=== PATIENT | female | born 1945 | race Caucasian/White ===

== ENCOUNTER 2016-12-21 10:51 | Day surgery (SDC) | payer MEDICARE, OTHER ==
[2016-12-13 10:35] LABS: ABSOLUTE EOSINOPHILS # (AUTO) 0.2 10^3/uL (0.0-0.6); ABSOLUTE LYMPHOCYTES (AUTO) 2.6 10^3/uL (0.5-4.7); ABSOLUTE MONOCYTES (AUTO) 0.6 10^3/uL (0.1-1.4); ABSOLUTE NEUT (AUTO) 3.2 10^3/uL (1.7-8.2); BASOPHILS % (AUTO) 0.6 % (0-2); EOSINOPHILS % (AUTO) 3.4 % (0-6); HEMATOCRIT 37.5 % (36.0-47.0); HEMOGLOBIN 12.3 g/dL (12.0-15.5); HGB HCT DIFFERENCE -0.6; LYMPHOCYTES % (AUTO) 39.4 % (13-45); MEAN CORPUSCULAR HEMOGLOBIN 32.3 pg (27.0-33.4); MEAN CORPUSCULAR HGB CONC 32.9 g/dL (32.0-36.0); MEAN CORPUSCULAR VOLUME 98 fl (80-97); MONOCYTES % (AUTO) 9.3 % (3-13); RED BLOOD COUNT 3.82 10^6/uL (3.72-5.28); RED CELL DISTRIBUTION WIDTH 13.9 % (11.5-14.0); SEGMENTED NEUTROPHILS % (AUTO) 47.3 % (42-78); WHITE BLOOD COUNT 6.7 10^3/uL (4.0-10.5)
[2016-12-13 10:36] LABS: APPEARANCE,URINE SLIGHTLY-CLOUDY; BILIRUBIN,URINE NEGATIVE (NEGATIVE); GLUCOSE, URINE NEGATIVE (NEGATIVE); KETONES,URINE NEGATIVE (NEGATIVE); LEUKOCYTE ESTERASE,URINE SMALL (NEGATIVE); NITRITE,URINE NEGATIVE (NEGATIVE); PROTEIN,URINE NEGATIVE (NEGATIVE); URINE SPECIFIC GRAVITY 1.013; UROBILINOGEN,URINE NEGATIVE mg/dL (<2.0)
[2016-12-13 11:06] LABS: ANION GAP 8 (5-19); BLOOD UREA NITROGEN 10 mg/dL (7-20); CALCIUM 9.3 mg/dL (8.4-10.2); CARBON DIOXIDE 31 mmol/L (22-30); CHLORIDE 104 mmol/L (98-107); CREATININE RESULT 0.71 mg/dL (0.52-1.25); GLUCOSE 76 mg/dL (75-110); POTASSIUM 5.3 mmol/L (3.6-5.0); SODIUM 142.8 mmol/L (137-145)
--- NOTE | 2016-12-13 11:20 | EKG REPORT ---
SEVERITY:- NORMAL ECG - SINUS RHYTHM : Confirmed by: Malachi River 13-Dec-2016 11:19:08
--- NOTE | 2016-12-13 11:55 | RADIOLOGY REPORT (SQ) ---
EXAM DESCRIPTION: CHEST PA/LATERAL COMPLETED DATE/TIME: 12/13/2016 11:18 am REASON FOR STUDY: PRE OP COMPARISON: None. TECHNIQUE: Frontal and lateral radiographic views of the chest acquired. NUMBER OF VIEWS: Two view. LIMITATIONS: None. FINDINGS: LUNGS AND PLEURA: No opacities, masses or pneumothorax. No pleural effusion. MEDIASTINUM AND HILAR STRUCTURES: No masses or contour abnormalities. HEART AND VASCULAR STRUCTURES: Heart normal size. No evidence for failure. BONES: No acute findings. HARDWARE: None in the chest. OTHER: No other significant finding. IMPRESSION: NO SIGNIFICANT RADIOGRAPHIC FINDING IN THE CHEST. TECHNICAL DOCUMENTATION: JOB ID: [id number] [employer]- All Rights Reserved
[~2016-12-21 10:51] MED LIST: CEFAZOLIN 2 GM/D5W RTU 2 GM/50 ML RTUPB IV PRN; CEFEPIME 2 GM/D5W RTU 2 GM/50 ML RTUPB IV PRN; DEXAMETHASONE SOD PHOSPHATE INJ 4 MG/1 ML VIAL ONE; LACTATED RINGERS 1000 ML IV PRN; LIDOCAINE 0.5% INJ-PF (5 MG/ML) 50 ML SDV SUBCUT PRN; LIDOCAINE 2% INJ-PF (20 MG/ML) 10 ML AMPUL ONE; ONDANSETRON HCL INJ/PF 4 MG/2 ML SDV ONE
[2016-12-21] MEDS ORDERED: LIDOCAINE 1%/EPINEPHRINE INJ 20 ML VIAL ONE (11:18)
[2016-12-21] MEDS ORDERED: BUPIVACAINE HCL 0.25% /EPINEPHRINE INJ/PF 30 ML SDV ONE (11:18)
[2016-12-21] MEDS ORDERED: BUPIVACAINE HCL 0.25 % INJ/PF (2.5 MG/1 ML) 30 ML VIAL ONE (11:21)
[2016-12-21] MEDS ORDERED: FENTANYL CITRATE INJ/PF 100 MCG/2 ML AMPUL ONE (11:44)
[2016-12-21] MEDS ORDERED: PROPOFOL INJ 200 MG/20 ML VIAL IV ONE (11:44)
[2016-12-21] MEDS ORDERED: MIDAZOLAM 2 MG/2 ML INJ ONE (11:44)
[2016-12-21] MEDS ORDERED: LIDOCAINE 1% INJ-PF (10 MG/ML) 30 ML SDV ONE (12:35)
[2016-12-21] MEDS ORDERED: OXYCODONE-ACETAMINOPHEN 5-325 MG TABLET PO PRN ×3 (14:21→15:08)
[2016-12-21] MEDS ORDERED: DIPHENHYDRAMINE HCL 50 MG/ML VIAL IV PRN (14:21)
[2016-12-21] MEDS ORDERED: MEPERIDINE HCL/PF INJ 25 MG/1 ML DISP.SYRIN IV PRN (14:21)
[2016-12-21] MEDS ORDERED: FENTANYL CITRATE INJ/PF 100 MCG/2 ML AMPUL IV PRN ×3 (14:21)
[2016-12-21] MEDS ORDERED: PROMETHAZINE HCL INJ 25 MG/1 ML VIAL IV PRN ×2 (14:21)
[2016-12-21] MEDS ORDERED: MORPHINE SULFATE 10 MG/ML INJ IV PRN (14:21)
--- NOTE | 2016-12-21 15:04 | Operative Report ---
Operative Report DATE OF SURGERY: 12/21/16 PREOPERATIVE DIAGNOSIS: Right carpal tunnel syndrome POSTOPERATIVE DIAGNOSIS: Same OPERATION: Right carpal tunnel release SURGEON: MATTHEW EMERSON ANESTHESIA: LMAC TISSUE REMOVED OR ALTERED: None COMPLICATIONS: None ESTIMATED BLOOD LOSS: 10 mL PROCEDURE: Procedure In Detail: Patient was seen and evaluated in the preoperative holding area. The RIGHT upper extremity was initialized and marked. Patient received Ancef IV for bacterial prophylaxis. Patient was taken back to the operative room where transferred operative table. Patient was sedated. Once he was adequately anesthetized, a nonsterile tourniquet was placed on his upper extremity. A surgical team debriefing was performed ensuring all instrumentation was available, the surgical procedure was discussed with possible concerns reviewed. The upper extremity was prepped with chlorhexidine and alcohol and draped in a sterile fashion. A timeout was done identifying correct patient, procedure and extremity everyone in attendance agree with this and verbalized no concerns.The extremity was then exsanguinated the tourniquet was inflated to 250 mmHg. I used first 10 mL's of 1% lidocaine to inject in the anticipated surgical site. A longitudinal incision over the mid palm was done. Immediately a self- retaining retractor was applied. I used Metzenbaum scissors to then dissect the palmar fascial tissue exposing the carpal tunnel ligament. I placed a hemostat at the most distal end and looped under the carpal tunnel ligament protecting the median nerve. I used a 15 blade and then to release partial relief for partially. I redirected hemostat to go further proximal and then remit maintaining ligament was cut with the 15 blade. I was able to place my small finger and feel no restricting bands or will remanent of the ligament. I did use a Metzenbaum scissors to release some of the forearm tissue make sure that there is no compression of the nerve. I then used pickups and layers to expose the median nerve and the motor branch showing no damage or injury to it. I used both irrigation to clean the wound and irrigated. Tourniquet was let down after 6 minutes. I used my bipolar electrocautery to then controlled any superficial bleeding. I then used 3-[address] 3 stitches in a horizontal mattress fashion. I proceeded then to apply 10 mL of quarter percent bupivacaine. extremity was cleaned and dried off. Xeroform followed by 2 x 2 dressings and Tegaderm was applied. I will wrapped with Santana bandage and then at this point remove the drapes. patient was then sent to PACU in stable condition.
--- NOTE | 2016-12-21 15:08 | PDOC DISCHARGE SUMMARY ---
Discharge Summary (SDC) - Discharge Final Diagnosis: Right carpal tunnel syndrome status post carpal tunnel release Date of Surgery: 12/21/16 Discharge Date: 12/21/16 Condition: Good Treatment or Instructions: Keep dressing on for 3 days. Remove dressing and then okay to shower. No soaking or bathing. Avoid lifting heavy objects. Follow-up in 1-2 weeks in the office. Instructed to return if any fevers chills redness or drainage from the wound. Prescriptions: Oxycodone HCl/Acetaminophen [Percocet 5-325 mg Tablet] 1 tab PO ASDIR PRN #15 tab PRN Reason: Respiratory Treatments at Home: Deep Breathing/Coughing Discharge Activity: No Lifting/Push/Pulling Home Care Assistance: None Needed Report the Following to Your Physician Immediately: Shortness of Breath, Vomiting, Increase in Pain, Fever over 101 Degrees, Unusual Bleeding, Redness, Swelling, Warmth, Increased Soreness, Drainage-Yellow, Drainage-Onofre, Drainage- Green, Drainage-Foul Smelling
[2016-12-21 16:35] VITALS: BP 122/78
== END 2016-12-21 16:30 | disposition home or self-care (01) ==
LOC: OROUT 10:51
PROVIDERS: ATTEND Orthopaedic Surgery
PROC: 01N50ZZ Release Median Nerve, Open Approach (ICD-10-PCS; principal; 2016-12-21 12:45)
DX: G56.01 Carpal tunnel syndrome, right upper limb (principal); E78.00 Pure hypercholesterolemia, unspecified; E07.9 Disorder of thyroid, unspecified; I10 Essential (primary) hypertension; M79.7 Fibromyalgia; E56.9 Vitamin deficiency, unspecified; F32.9 Major depressive disorder, single episode, unspecified; G43.909 Migraine, unspecified, not intractable, without status migrainosus; Z96.659 Presence of unspecified artificial knee joint; Z88.0 Allergy status to penicillin; Z88.6 Allergy status to analgesic agent; Z79.899 Other long term (current) drug therapy; Z87.891 Personal history of nicotine dependence
CPT/HCPCS: 93005; 36415 ×2; 84132; 85025; 80048; 81001; 71020; 93010; 64721; J2250; J1100; J3010; J3490 ×2; J2405; J2704; J0690; 1810

== ENCOUNTER 2017-01-18 17:11 | Emergency (ER) | payer MEDICARE, OTHER ==
[2017-01-18] MEDS ORDERED: NITROGLYCERIN 2% OINTMENT 1 GM PACKET TP ONE (17:23)
--- NOTE | 2017-01-18 17:25 | ER Document Report ---
ED Cardiac <ENRIQUE AMIN - Last Filed: 01/18/17 23:05> - General Mode of Arrival: Ambulatory Information source: Patient TRAVEL OUTSIDE OF THE [place] IN LAST 30 DAYS: No <DANIEL RICE - Last Filed: 01/20/17 11:48> - General Chief Complaint: Chest Pain Stated Complaint: CHEST PAIN Time Seen by Provider: 01/18/17 17:16 Notes: Patient is a 71-year-old female with a history of hypertension, hyperlipidemia who presents to the ER today for chest pain that started 3 days ago off and on but worsened acutely right before arrival today at approximately 4 PM. Patient was sitting on her porch talking to her daughter on the telephone whenever she had left-sided chest pain that was very sharp in nature, going straight through to her back radiating into the left arm and up to the left jaw. Patient denies any nausea or shortness of breath with this. She has never had a heart attack or stroke. She took 3 baby aspirin immediately. She denies any calf pain or history of blood clots. (DANIEL RICE) - Related Data Allergies/Adverse Reactions: Penicillins Allergy (Intermediate, Verified 01/18/17 17:28) Generalized Itching tetracycline Allergy (Intermediate, Verified 01/18/17 17:28) Generalized rash erythromycin base Allergy (Mild, Verified 01/18/17 17:28) Generalized rash amoxicillin Allergy (Verified 01/18/17 17:28) Generalized rash Past Medical History - General Information source: Patient - Social History Smoking Status: Unknown if Ever Smoked Family History: Reviewed & Not Pertinent - Past Medical History Cardiac Medical History: Denies: Hx Coronary Artery Disease, Hx Heart Attack, Hx Hypertension Pulmonary Medical History: Reports: Hx Pneumonia - HISTORY OF 2 TIMES Denies: Hx Asthma, Hx Bronchitis, Hx COPD Neurological Medical History: Denies: Hx Cerebrovascular Accident, Hx Seizures Musculoskeltal Medical History: Reports Hx Arthritis - OSTEO ARTHRITIS - Immunizations Hx Diphtheria, Pertussis, Tetanus Vaccination: Yes Hx Pneumococcal Vaccination: 08/03/14 <DANIEL RICE - Last Filed: 01/20/17 11:48> Review of Systems - Review of Systems Constitutional: No symptoms reported EENT: No symptoms reported Cardiovascular: See HPI Respiratory: No symptoms reported Gastrointestinal: No symptoms reported Genitourinary: No symptoms reported Female Genitourinary: No symptoms reported Musculoskeletal: No symptoms reported Skin: No symptoms reported Hematologic/Lymphatic: No symptoms reported Neurological/Psychological: No symptoms reported <DEUCEFERNDANIEL GRAVES - Last Filed: 01/20/17 11:48> Physical Exam <ENRIQUE AMIN - Last Filed: 01/18/17 23:05> <DEUCEFERNDANIEL GRAVES - Last Filed: 01/20/17 11:48> - Vital signs Vitals: Resp BP Pulse Ox 13 113/66 98 01/18/17 17:17 01/18/17 17:17 01/18/17 17:17 - Notes Notes: PHYSICAL EXAMINATION: GENERAL: obviously uncomfortable, but in no acute distress. HEAD: Atraumatic, normocephalic. EYES: Pupils equal round and reactive to light, extraocular movements intact, sclera anicteric, conjunctiva are normal. NECK: Normal range of motion, supple without lymphadenopathy LUNGS: CTAB and equal. No wheezes rales or rhonchi. HEART: chest nontender to palpation, Regular rate and rhythm without murmurs ABDOMEN: Soft, no tenderness. No guarding, no rebound BACK: no vertebral tenderness, normal ROM GI/: no CVA tenderness EXTREMITIES: Normal range of motion, no pitting edema. No cyanosis. NEUROLOGICAL: Cranial nerves grossly intact. Normal sensory/motor exams. PSYCH: Normal mood, normal affect. SKIN: Warm, Dry, normal turgor, no rashes or lesions noted (DANIEL RICE) Course - Laboratory Result Diagrams: 01/18/17 17:20 01/18/17 17:20 <ENRIQUE AMIN - Last Filed: 01/18/17 23:05> - Laboratory Result Diagrams: 01/18/17 17:20 01/18/17 17:20 <KRYSTALDANIEL - Last Filed: 01/20/17 11:48> - Re-evaluation Re-evalutation: 01/18/17 18:42 3 nitroglycerin on the ambulance relieved patient's pain from a 10 down to a 6. Nitropaste is now relieved her from a 6 down to a 2 out of 10 pain, however I cannot get patient pain-free. Patient has also had Tylenol, she is complaining of headache after the nitroglycerin was given. First troponin is normal. Lab work is unremarkable at this point. EKG reveals a normal sinus rhythm with a rate of 84 bpm without evidence of ischemia or abnormality. Hospitalist here do not admit patient with continued chest pain coming in with her type of story as she likely needs a cardiac catheterization. Tutu Lui was called, I am awaiting callback. 01/18/17 19:27 pt is now chest pain free with nitro paste. Dr. Barragan, hospitalist here wants second troponin as she is having typical chest pain. Handed over to AMALIA Vasquez at this time. 01/18/17 19:37 (DANIEL RICE) - Vital Signs Vital signs: Temp Pulse Resp BP Pulse Ox 98.0 F 20 105/60 98 01/18/17 17:22 01/18/17 23:01 01/18/17 23:01 01/18/17 23:01 - Laboratory Laboratory results interpreted by me: 01/18/17 01/18/17 17:20 17:20 MCV 102 H MCH 34.2 H Creatine Kinase < 20 L Discharge <ENRIQUE AMIN - Last Filed: 01/18/17 23:05> <DANIEL RICE - Last Filed: 01/20/17 11:48> - Discharge Clinical Impression: Unstable angina Condition: Poor Disposition: AGAINST MEDICAL ADVICE Instructions: Angina Episode ([facility]), Nitrates ([facility]) Additional Instructions: As you are leaving AGAINST MEDICAL ADVICE, please remember what we discussed that this still could be a life-threatening situation and could very likely be related to a severe blockage to your heart. Please return immediately if you change your mind about further evaluation and treatment, develop more chest pain. May use the nitroglycerin in the meantime as directed. Take a daily aspirin unless there is some cause that you cannot. Prescriptions: Nitroglycerin [Nitrostat 0.4 mg (1/150 Gr) Tabs 25/Bottle] 1 tab SL Q5MP PRN # 25 tab.subl PRN Reason:
[2017-01-18 17:28] LABS: ABSOLUTE BASOPHILS # (AUTO) 0.1 10^3/uL (0.0-0.2); ABSOLUTE EOSINOPHILS # (AUTO) 0.2 10^3/uL (0.0-0.6); ABSOLUTE LYMPHOCYTES (AUTO) 2.5 10^3/uL (0.5-4.7); ABSOLUTE MONOCYTES (AUTO) 0.5 10^3/uL (0.1-1.4); ABSOLUTE NEUT (AUTO) 3.3 10^3/uL (1.7-8.2); BASOPHILS % (AUTO) 1.1 % (0-2); EOSINOPHILS % (AUTO) 2.7 % (0-6); HEMATOCRIT 38.7 % (36.0-47.0); HGB HCT DIFFERENCE 0.3; LYMPHOCYTES % (AUTO) 38.3 % (13-45); MEAN CORPUSCULAR HEMOGLOBIN 34.2 pg (27.0-33.4); MEAN CORPUSCULAR HGB CONC 33.7 g/dL (32.0-36.0); MEAN CORPUSCULAR VOLUME 102 fl (80-97); RED BLOOD COUNT 3.81 10^6/uL (3.72-5.28); RED CELL DISTRIBUTION WIDTH 13.7 % (11.5-14.0); SEGMENTED NEUTROPHILS % (AUTO) 50.9 % (42-78); WHITE BLOOD COUNT 6.6 10^3/uL (4.0-10.5)
--- NOTE | 2017-01-18 17:48 | RADIOLOGY REPORT (SQ) ---
EXAM DESCRIPTION: CHEST SINGLE VIEW COMPLETED DATE/TIME: 01/18/2017 5:29 pm REASON FOR STUDY: bed 11 cp COMPARISON: 12/13/2016 NUMBER OF VIEWS: One view. TECHNIQUE: Single frontal radiographic view of the chest acquired. LIMITATIONS: None. FINDINGS: LUNGS AND PLEURA: No opacities, masses or pneumothorax. No pleural effusion. MEDIASTINUM AND HILAR STRUCTURES: No masses. Contour normal. HEART AND VASCULAR STRUCTURES: Heart normal in size. Normal vasculature. BONES: No acute findings. HARDWARE: None in the chest. OTHER: No other significant finding. IMPRESSION: NO SIGNIFICANT RADIOGRAPHIC FINDING IN THE CHEST. TECHNICAL DOCUMENTATION: JOB ID: [id number] [employer]- All Rights Reserved
[2017-01-18 17:53] LABS: ALANINE AMINOTRANSFERASE 29 U/L (9-52); ALKALINE PHOSPHATASE 71 U/L (38-126); ANION GAP 8 (5-19); ASPARTATE AMINO TRANSFERASE 19 U/L (14-36); BILIRUBIN,DIRECT 0.3 mg/dL (0.0-0.4); BILIRUBIN,TOTAL 0.5 mg/dL (0.2-1.3); BLOOD UREA NITROGEN 14 mg/dL (7-20); CALCIUM 9.5 mg/dL (8.4-10.2); CARBON DIOXIDE 26 mmol/L (22-30); CHLORIDE 107 mmol/L (98-107); CREATININE RESULT 0.69 mg/dL (0.52-1.25); GLUCOSE 108 mg/dL (75-110); POTASSIUM 4.2 mmol/L (3.6-5.0); SODIUM 141.4 mmol/L (137-145); TOTAL PROTEIN 6.7 g/dL (6.3-8.2)
[2017-01-18 17:54] LABS: CREATINE KINASE < 20 U/L (30-135)
[2017-01-18 18:05] LABS: CREATINE KINASE MB 0.25 ng/mL (<4.55); TROPONIN I < 0.012 ng/mL
[2017-01-18] MEDS ORDERED: ACETAMINOPHEN 325 MG TABLET PO ONE (18:16)
--- NOTE | 2017-01-18 22:33 | ER Document Report ---
Doctor's Note Notes: 01/18/17 22:30 As the providers were not available I went and saw the patient as she was trying to leave AMA and I wanted to make sure she understood. I had a long discussion with her and her daughter there was concern for the patient having unstable angina. Patient initially was agreeable per report to be admitted. They are waiting on his second cardiac enzymes to make sure she had not had a non-STEMI. The patient's pain was resolved with nitroglycerin. She does admit to me she used her 's nitroglycerin at home who is . She is pain -free at this point and demanding to leave. She is well aware of cardiac risk considering her father of cardiac disease. She understands the implications of 2 negative troponins does not exclude life-threatening coronary artery disease. She does guarantee me she will come back if the pain recurs. I instructed her on nitroglycerin and will prescribe her a file and she has been instructed on its use again. It seems to me that she does not have her seeing-eye dog of 8 years, a black lab and she wants to get back to the dog. She will follow-up with cardiology. She does have [place] PCP in [place] that she will touch base with as well. Again she is leaving AMA completely understanding the risks including and permanent disability.
[2017-01-18 23:18] VITALS: BP 105/60
--- NOTE | 2017-01-19 06:03 | EKG REPORT ---
SEVERITY:- NORMAL ECG - SINUS RHYTHM : Confirmed by: Mahsa Foster MD 19-Jan-2017 06:02:15
== END 2017-01-18 23:19 | disposition left against medical advice (07) ==
LOC: ER 17:11
DX: I20.0 Unstable angina (principal); I10 Essential (primary) hypertension; Z88.0 Allergy status to penicillin; Z88.1 Allergy status to other antibiotic agents; R51 Headache; Z53.20 Procedure and treatment not carried out because of patient's decision for unspecified reasons
CPT/HCPCS: 93005; 99285; 36415; 82553; 82550; 85025; 80053; 84484; 71010; 93010; A9270 ×2

== ENCOUNTER 2019-08-27 17:25 | Observation (INO) | payer MEDICARE, OTHER ==
--- NOTE | 2019-08-27 18:53 | RADIOLOGY REPORT (SQ) ---
EXAM DESCRIPTION: CHEST SINGLE VIEW COMPLETED DATE/TIME: 08/27/2019 6:45 pm REASON FOR STUDY: bed 11 cp COMPARISON: None. EXAM PARAMETERS: NUMBER OF VIEWS: One view. TECHNIQUE: Single frontal radiographic view of the chest acquired. RADIATION DOSE: NA LIMITATIONS: None. FINDINGS: LUNGS AND PLEURA: No opacities, masses or pneumothorax. No pleural effusion. MEDIASTINUM AND HILAR STRUCTURES: No masses. Contour normal. HEART AND VASCULAR STRUCTURES: Heart normal in size. Aortic atherosclerosis. . BONES: No acute findings. HARDWARE: Surgical clips overlie left upper quadrant. OTHER: No other significant finding. IMPRESSION: NO ACUTE RADIOGRAPHIC FINDING IN THE CHEST. TECHNICAL DOCUMENTATION: JOB ID: [id number] 2010 [employer] All Rights Reserved Reading location - IP/workstation name: [email or web address]
[2019-08-27 19:34] LABS: ABSOLUTE EOSINOPHILS # (AUTO) 0.2 10^3/uL (0.0-0.6); ABSOLUTE LYMPHOCYTES (AUTO) 2.2 10^3/uL (0.5-4.7); ABSOLUTE MONOCYTES (AUTO) 0.4 10^3/uL (0.1-1.4); ABSOLUTE NEUT (AUTO) 3.9 10^3/uL (1.7-8.2); BASOPHILS % (AUTO) 0.6 % (0-2); EOSINOPHILS % (AUTO) 2.3 % (0-6); HEMATOCRIT 37.7 % (36.0-47.0); HEMOGLOBIN 12.8 g/dL (12.0-15.5); LYMPHOCYTES % (AUTO) 33.2 % (13-45); MEAN CORPUSCULAR HEMOGLOBIN 33.1 pg (27.0-33.4); MEAN CORPUSCULAR HGB CONC 33.9 g/dL (32.0-36.0); MEAN CORPUSCULAR VOLUME 98 fl (80-97); MONOCYTES % (AUTO) 5.9 % (3-13); PLATELET COUNT 225 10^3/uL (150-450); RED BLOOD COUNT 3.86 10^6/uL (3.72-5.28); RED CELL DISTRIBUTION WIDTH 13.3 % (11.5-14.0); TOTAL CELLS COUNTED % (AUTO) 100 %; WHITE BLOOD COUNT 6.8 10^3/uL (4.0-10.5)
[2019-08-27 20:00] LABS: ALBUMIN 3.6 g/dL (3.5-5.0); ALKALINE PHOSPHATASE 76 U/L (38-126); ANION GAP 6 (5-19); ASPARTATE AMINO TRANSFERASE 22 U/L (14-36); BILIRUBIN,DIRECT 0.3 mg/dL (0.0-0.4); BILIRUBIN,TOTAL 0.3 mg/dL (0.2-1.3); BLOOD UREA NITROGEN 12 mg/dL (7-20); CALCIUM 8.9 mg/dL (8.4-10.2); CARBON DIOXIDE 30 mmol/L (22-30); CHLORIDE 107 mmol/L (98-107); GLUCOSE 93 mg/dL (75-110); POTASSIUM 4.7 mmol/L (3.6-5.0); TOTAL PROTEIN 6.2 g/dL (6.3-8.2)
[2019-08-27 20:04] LABS: CREATINE KINASE < 20 U/L (30-135)
[2019-08-27 20:12] LABS: CREATINE KINASE MB 0.45 ng/mL (<4.55); TROPONIN I < 0.012 ng/mL
--- NOTE | 2019-08-27 21:28 | ER Document Report ---
ED General - General Chief Complaint: Chest Pain Stated Complaint: CHEST PAIN Time Seen by Provider: 08/27/19 20:17 TRAVEL OUTSIDE OF THE [place] IN LAST 30 DAYS: No - HPI Notes: 73-year-old female with history of heavy cigarette smoking, hypertension and hyperlipidemia but no known prior history of CAD now presenting with a chief complaint of central chest pain. Patient says she was walking outdoors when the pain came on relatively suddenly and was described as an oppressive pressure sensation in the center of her chest radiating to left shoulder. This was about a 7/10 intensity at that time. Over the course of 30 minutes or so without any specific intervention it decreased to a level of about 3/10. Patient persisted until the time she got to the emergency department when she arrived here the pain resolved and has not returned. No associated nausea, vomiting, diaphoresis or dyspnea. Patient's daughter gave her aspirin at home. Patient was seen here in the emergency department in 2017 for chest pain and signed out AMA at that time and never underwent further work-up. She continues to smoke a pack of cigarettes per day. Patient is not diabetic. Family history is negative for CAD. She has no personal nor family history of thromboembolic disease. HEART Score: HISTORY 2 ECG 1 AGE 3 RISK FACTORS 2 TROPONIN 0 TOTAL: 7 If HEART score is = 3 AND both tronponin measurments are normal, the 30 day risk of a major adverse cardiac event (all-cause mortality, myocardia infarction or need for coronary revscularization) is < 1% (Sensitivity 100%, NPV 100%). - Related Data Allergies/Adverse Reactions: Penicillins Allergy (Intermediate, Verified 08/27/19 19:07) Generalized Itching tetracycline Allergy (Intermediate, Verified 08/27/19 19:07) Generalized rash erythromycin base Allergy (Mild, Verified 08/27/19 19:07) Generalized rash amoxicillin Allergy (Verified 08/27/19 19:07) Generalized rash Home Medications: hctz, synthroid.... Past Medical History - General Information source: Patient, Relative - Social History Smoking Status: Current Every Day Smoker Chew tobacco use (# tins/day): No Frequency of alcohol use: None Drug Abuse: None Family History: Reviewed & Not Pertinent Patient has suicidal ideation: No Patient has homicidal ideation: No - Past Medical History Cardiac Medical History: Reports: Hx Hypercholesterolemia, Hx Hypertension Denies: Hx Coronary Artery Disease Pulmonary Medical History: Reports: Hx Pneumonia - HISTORY OF 2 TIMES Denies: Hx Asthma, Hx Bronchitis, Hx COPD Neurological Medical History: Denies: Hx Cerebrovascular Accident, Hx Seizures Musculoskeletal Medical History: Reports Hx Arthritis - OSTEO ARTHRITIS Past Surgical History: Reports: Hx Abdominal Surgery - gastric bypass, Hx Appendectomy, Hx Cholecystectomy, Hx Oral Surgery - knee replacement - Immunizations Hx Diphtheria, Pertussis, Tetanus Vaccination: Yes Hx Pneumococcal Vaccination: 08/03/14 Review of Systems - Review of Systems Notes: Constitutional: Negative for fever. HENT: Negative for sore throat. Eyes: Negative for visual changes. Cardiovascular: As per HPI. Respiratory: Negative for shortness of breath. Gastrointestinal: Negative for abdominal pain, vomiting or diarrhea. Genitourinary: Negative for dysuria. Musculoskeletal: Negative for back pain. Skin: Negative for rash. Neurological: Negative for headaches, weakness or numbness. 10 point ROS negative except as marked above and in HPI. Physical Exam - Vital signs Vitals: BP Pulse Ox 121/68 98 08/27/19 17:42 08/27/19 17:42 - Notes Notes: GENERAL: Female patient approximate stated age appearing in no acute distress. SKIN: Good turgor no rashes. HEAD: Normocephalic atraumatic. EYES: PERRLA. EOMI. Conjunctivae and sclerae clear. EARS: CANALS AND TMS CLEAR. NOSE: CLEAR. MOUTH: Moist mucosa. Good dentition. No stridor or edema. No drooling. NECK: Supple. No masses or thyromegaly. No adenopathy. Carotids 2+ without bruits. No JVD. BACK: Symmetrical without tenderness. CHEST: Mild tenderness anterior chest wall. Respirations unlabored. Breath sounds clear and symmetrical. HEART: Regular rhythm. No murmur gallop or rub. ABDOMEN: Soft nontender without masses, organomegaly or rebound. Bowel sounds normally active. No bruits. GENITALIA: Deferred. EXTREMITIES: Advanced degenerative changes in phalangeal joints both hands. Trace pretibial edema bilaterally. No calf tenderness. Cap refill less than 1.5 seconds. Dorsalis pedis and posterior tibial pulses 3+ and symmetrical. NEUROLOGICAL: GCS 15. Alert and oriented x3. Normal gait. Fluent speech. Cranial nerves II through XII intact. Sensorimotor and cerebellar normal. Normal tone. PSYCHIATRIC: Anxious affect. Course - Re-evaluation Re-evalutation: 08/27/19 21:29 Initial troponin is normal. EKG shows nonspecific changes only. Heart score is 5. I recommend admission and we will present the case to on-call hospitalist Dr. Rubens Barragan. - Vital Signs Vital signs: Temp Pulse Resp BP Pulse Ox 18 124/72 98 08/27/19 20:01 08/27/19 20:01 08/27/19 20:01 - Laboratory Result Diagrams: 08/27/19 19:05 08/27/19 19:05 Laboratory results interpreted by me: 08/27/19 08/27/19 19:05 19:05 MCV 98 H Creatine Kinase < 20 L Total Protein 6.2 L - EKG Interpretation by Me Additional EKG results interpreted by me: 08/27/19 21:29 Twelve-lead EKG from 1828 hrs. is reviewed contemporaneously by me showing normal sinus rhythm with a rate of 66 and multiple PACs present. Intervals are normal. QRS axis is 12 degrees. She has no acute ST or T wave changes. Discharge - Discharge Clinical Impression: Chest pain Qualifiers: Chest pain type: unspecified Qualified Code(s): R07.9 - Chest pain, unspecified Condition: Stable Disposition: ADMITTED OBSERVATION Admitting Provider: Yung (Hospitalist) Unit Admitted: Telemetry
[2019-08-27] MEDS ORDERED: NITROGLYCERIN 0.4 MG/TAB 25 TAB/BOTTLE SL PRN (21:38)
[2019-08-27] MEDS ORDERED: MAG HYDROX/AL HYDROX/SIMETH SUSP 30 ML UDCUP PO PRN (21:38)
[2019-08-27] MEDS ORDERED: ACETAMINOPHEN 325 MG TABLET PO PRN (21:38)
[2019-08-27] MEDS: ATORVASTATIN CALCIUM 80 MG TABLET PO SCH (22:21)
--- NOTE | 2019-08-27 22:59 | EKG REPORT ---
SEVERITY:- ABNORMAL ECG - SINUS RHYTHM MULTIPLE ATRIAL PREMATURE COMPLEXES : Confirmed by: Mahsa Foster MD 27-Aug-2019 22:57:32
--- NOTE | 2019-08-28 04:43 | PDOC H&P ---
History of Present Illness Admission Date/PCP: 08/27/19 21:39 Patient complains of: Chest pain History of Present Illness: BRODY LONDONO is a 73 year old female with a past medical history of hypertension, tobacco dependence, fibromyalgia, chronic pain depression, anxiety and panic attacks. She presents with several minutes of chest pain while sitting described as pressure 5 out of 5 intensity which was nonradiating and not associated with palpitations, shortness of breath, nausea or vomiting. In the emergency department she has an unremarkable work-up and is referred to the hospitalist for admission denying recent previous stress test. She is unable to identify alleviating or exacerbating factors. She denies current pain until lately touched upon the chest wall which reproduces intractable pain. Denies recent change in medication regiment she is otherwise been stressed out. Past Medical History Cardiac Medical History: Reports: Myocardial Infarction, Hyperlipidema, Hypertension Denies: Coronary Artery Disease Pulmonary Medical History: Reports: Pneumonia - HISTORY OF 2 TIMES Denies: Asthma, Bronchitis, Chronic Obstructive Pulmonary Disease (COPD) Neurological Medical History: Denies: Seizures Musculoskeltal Medical History: Reports: Arthritis - OSTEO ARTHRITIS Psychiatric Medical History: Reports: Depression, General Anxiety Disorder, Personality Disorder, Tobacco Dependency Denies: Alcohol Dependency Hematology: Reports: Anemia - PERNICIOUS ANEMIA Past Surgical History Past Surgical History: Reports: Appendectomy, Cholecystectomy Social History Information Source: Patient, [facility] Records Lives with: Family Smoking Status: Current Every Day Smoker Cigarettes Packs Per Day: 1 Electronic Cigarette use?: No Number of Years Smokin Last Time Smoked: 08/27/2019 Frequency of Alcohol Use: Rare Hx Recreational Drug Use: No Drugs: None Hx Prescription Drug Abuse: No - Advance Directive Resuscitation Status: Full Code Family History Family History: CAD, Hypertension Parental Family History Reviewed: Yes Children Family History Reviewed: Yes Sibling(s) Family History Reviewed.: Yes Medication/Allergy Home Medications: Amitriptyline HCl 3 tab PO DAILY 12/13/16 Buprenorphine [Butrans] 1 each TD ASDIR PRN 12/13/16 Duloxetine HCl [Cymbalta] 60 mg PO DAILY 12/13/16 Levothyroxine Sodium 88 mcg PO DAILY 12/13/16 Rosuvastatin Calcium [Crestor 20 mg Tablet] 20 mg PO DAILY 12/13/16 Telmisartan [Micardis 40 mg Tablet] 40 mg PO DAILY 12/13/16 Oxycodone HCl/Acetaminophen [Percocet 5-325 mg Tablet] 1 tab PO ASDIR PRN #15 tab 12/21/16 Nitroglycerin [Nitrostat 0.4 mg (1/150 Gr) Tabs 25/Bottle] 1 tab SL Q5MP PRN #25 tab.subl 01/18/17 Allergies/Adverse Reactions: Penicillins Allergy (Intermediate, Verified 08/27/19 19:07) Generalized Itching tetracycline Allergy (Intermediate, Verified 08/27/19 19:07) Generalized rash erythromycin base Allergy (Mild, Verified 08/27/19 19:07) Generalized rash amoxicillin Allergy (Verified 08/27/19 19:07) Generalized rash Review of Systems Constitutional: ABSENT: chills, fever(s), headache(s), weight gain, weight loss Eyes: ABSENT: visual disturbances Ears: ABSENT: hearing changes Cardiovascular: ABSENT: chest pain, dyspnea on exertion, edema, orthropnea, palpitations Respiratory: ABSENT: cough, hemoptysis Gastrointestinal: PRESENT: constipation. ABSENT: abdominal pain, diarrhea, h ematemesis, hematochezia, nausea, vomiting Genitourinary: ABSENT: dysuria, hematuria Musculoskeletal: ABSENT: joint swelling Integumentary: ABSENT: rash, wounds Neurological: ABSENT: abnormal gait, abnormal speech, confusion, dizziness, focal weakness, syncope Psychiatric: ABSENT: anxiety, depression, homidical ideation, suicidal ideation Endocrine: ABSENT: cold intolerance, heat intolerance, polydipsia, polyuria Hematologic/Lymphatic: ABSENT: easy bleeding, easy bruising Physical Exam Vital Signs: Temp Pulse Resp BP Pulse Ox 98.3 F 70 16 127/67 H 97 08/28/19 00:51 08/28/19 02:00 08/28/19 00:51 08/27/19 22:01 08/28/19 00:51 Intake & Output 08/26/19 08/27/19 08/28/19 11:59 11:59 11:59 Weight 68.6 kg General appearance: PRESENT: cooperative, other - Tardive dyskinesia Head exam: PRESENT: atraumatic, normocephalic Eye exam: PRESENT: conjunctiva pink, EOMI, PERRLA. ABSENT: scleral icterus Ear exam: PRESENT: normal external ear exam Mouth exam: PRESENT: moist, tongue midline Neck exam: ABSENT: carotid bruit, JVD, lymphadenopathy, thyromegaly Respiratory exam: PRESENT: clear to auscultation pawan. ABSENT: rales, rhonchi, wheezes Cardiovascular exam: PRESENT: RRR, other - Reproducible chest wall pain with li ght touch. ABSENT: diastolic murmur, rubs, systolic murmur Pulses: PRESENT: normal dorsalis pedis pul Vascular exam: PRESENT: normal capillary refill GI/Abdominal exam: PRESENT: normal bowel sounds, soft. ABSENT: distended, guarding, mass, organolmegaly, rebound, tenderness Rectal exam: PRESENT: deferred Extremities exam: PRESENT: full ROM. ABSENT: calf tenderness, clubbing, pedal edema Musculoskeletal exam: PRESENT: tenderness - Reproducible chest pain with light touch to chest wall Neurological exam: PRESENT: alert, awake, oriented to person, oriented to place, oriented to time, oriented to situation, CN II-XII grossly intact. ABSENT: motor sensory deficit Psychiatric exam: PRESENT: anxious, unusual affect Skin exam: PRESENT: dry, intact, warm. ABSENT: cyanosis, rash Results Laboratory Results: 08/27/19 19:05 08/27/19 19:05 08/27/19 08/27/19 08/27/19 19:05 19:05 19:05 WBC 6.8 RBC 3.86 Hgb 12.8 Hct 37.7 MCV 98 H MCH 33.1 MCHC 33.9 RDW 13.3 Plt Count 225 Seg Neutrophils % 58.0 Sodium 142.7 Potassium 4.7 Chloride 107 Carbon Dioxide 30 Anion Gap 6 BUN 12 Creatinine 0.67 Est GFR ( Amer) > 60 Glucose 93 Calcium 8.9 Total Bilirubin 0.3 AST 22 Alkaline Phosphatase 76 Total Protein 6.2 L Albumin 3.6 TSH 0.49 08/27/19 08/27/19 08/27/19 19:05 19:05 21:48 Creatine Kinase < 20 L CK-MB (CK-2) 0.45 Troponin I < 0.012 < 0.012 08/28/19 03:09 Creatine Kinase CK-MB (CK-2) Troponin I < 0.012 Impressions: Chest X-Ray 08/27/19 17:44 IMPRESSION: NO ACUTE RADIOGRAPHIC FINDING IN THE CHEST. Assessment and Plan - Diagnosis (1) Atypical chest pain Is this a current diagnosis for this admission?: Yes Plan: though the patient's pain is atypical there are multiple risk factors for coronary artery disease and subsequently will observe and evaluation of acute coronary syndrome versus coronary artery disease with anginal equivalents. Cardiac monitoring blood pressure Q6 hours ,TSH, lipid profile, serial cardiac enzymes and cardiac stress test (2) Hypertension Is this a current diagnosis for this admission?: Yes Plan: Follow-up medication reconciliation, hydralazine as needed (3) Tobacco abuse Is this a current diagnosis for this admission?: Yes Plan: Tobacco cessation counseling performed, nicotine replacement options discussed. (4) Anxiety Is this a current diagnosis for this admission?: Yes Plan: Follow-up outpatient medication reconciliation (5) Chronic pain Is this a current diagnosis for this admission?: Yes Plan: Follow-up outpatient medication reconciliation, bowel regiment (6) Constipation Is this a current diagnosis for this admission?: Yes Plan: Lactulose and Fleet enema as needed - Time Time Spent with patient: 25-34 minutes
[2019-08-28] MEDS ORDERED: ASPIRIN 81 MG TABLET, ENT COATED PO SCH (10:00)
--- NOTE | 2019-08-28 13:47 | PDOC PROGRESS REPORT ---
Subjective Progress Note for:: 08/28/19 Subjective:: BRODY LONDONO is a 73 year old female with a past medical history of hypertension, tobacco dependence, fibromyalgia, chronic pain depression, anxiety and panic attacks. She presents with several minutes of chest pain while sitting described as pressure 5 out of 5 intensity which was nonradiating and not associated with palpitations, shortness of breath, nausea or vomiting. In the emergency department she has an unremarkable work-up and is referred to the hospitalist for admission denying recent previous stress test. She is unable to identify alleviating or exacerbating factors. She denies current pain until lately touched upon the chest wall which reproduces intractable pain. Denies recent change in medication regiment she is otherwise been stressed out. 08/28/2019. No acute events overnight. Denies any fever, chills, nausea, vomiting, diarrhea, constipation or any urinary symptoms. Chest pain has resolved. Apparently patient was supposed to have nuclear stress test today but unfortunately the wrong test was ordered as per nuclear medicine department. Nuclear stress test has been reordered and patient is pending stress test tomorrow. Reason For Visit: CHEST PAIN Physical Exam Vital Signs: Temp Pulse Resp BP Pulse Ox 98.3 F 58 L 16 127/67 H 97 08/28/19 00:51 08/28/19 07:00 08/28/19 00:51 08/27/19 22:01 08/28/19 00:51 Intake & Output 08/27/19 08/28/19 08/29/19 06:59 06:59 06:59 Intake Total 150 598 Balance 150 598 Weight 68.6 kg General appearance: PRESENT: no acute distress, well-developed, well-nourished Head exam: PRESENT: atraumatic, normocephalic Respiratory exam: PRESENT: clear to auscultation pawan. ABSENT: rales, rhonchi, wheezes Cardiovascular exam: PRESENT: RRR. ABSENT: diastolic murmur, rubs, systolic murmur Extremities exam: PRESENT: full ROM. ABSENT: calf tenderness, clubbing, pedal edema Neurological exam: PRESENT: alert, awake, oriented to person, oriented to place, oriented to time, oriented to situation, CN II-XII grossly intact. ABSENT: motor sensory deficit Results Laboratory Results: 08/27/19 19:05 08/27/19 19:05 08/27/19 08/27/19 08/27/19 19:05 19:05 19:05 WBC 6.8 RBC 3.86 Hgb 12.8 Hct 37.7 MCV 98 H MCH 33.1 MCHC 33.9 RDW 13.3 Plt Count 225 Seg Neutrophils % 58.0 Sodium 142.7 Potassium 4.7 Chloride 107 Carbon Dioxide 30 Anion Gap 6 BUN 12 Creatinine 0.67 Est GFR ( Amer) > 60 Glucose 93 Calcium 8.9 Total Bilirubin 0.3 AST 22 Alkaline Phosphatase 76 Total Protein 6.2 L Albumin 3.6 TSH 0.49 08/27/19 08/27/19 08/27/19 19:05 19:05 21:48 Creatine Kinase < 20 L CK-MB (CK-2) 0.45 Troponin I < 0.012 < 0.012 08/28/19 08/28/19 03:09 09:23 Creatine Kinase CK-MB (CK-2) Troponin I < 0.012 < 0.012 Impressions: Chest X-Ray 08/27/19 17:44 IMPRESSION: NO ACUTE RADIOGRAPHIC FINDING IN THE CHEST. Assessment and Plan - Diagnosis (1) Atypical chest pain Is this a current diagnosis for this admission?: Yes Plan: Resolved. Resenting with atypical chest pain in the setting of multiple risk factors for coronary artery disease TSH WNL. Lipid panel WNL. Troponins negative x3. Plan is for cardiac a stress test for further risk stratification. Continue telemetry, beta-blockers, statins, ARB, antiplatelets. PRN morphine and sublingual nitroglycerin. (2) Chronic pain Is this a current diagnosis for this admission?: Yes Plan: Follow-up outpatient medication reconciliation, bowel regiment (3) Constipation Is this a current diagnosis for this admission?: Yes Plan: Lactulose and Fleet enema as needed (4) Hypertension Is this a current diagnosis for this admission?: Yes Plan: Follow-up medication reconciliation, hydralazine as needed (5) Tobacco abuse Is this a current diagnosis for this admission?: Yes Plan: Tobacco cessation counseling performed, nicotine replacement options discussed. (6) Anxiety Is this a current diagnosis for this admission?: Yes Plan: Follow-up outpatient medication reconciliation
[2019-08-28] MEDS ORDERED: HYDRALAZINE HCL INJ/PF 20 MG/1 ML SDV IV PRN (13:48)
[2019-08-28] MEDS ORDERED: METOPROLOL TARTRATE PF/INJ 5 MG/5 ML SDV IV PRN (13:48)
[2019-08-28] MEDS ORDERED: OXYCODONE-ACETAMINOPHEN 5-325 MG TABLET PO PRN (13:49)
[2019-08-28] MEDS ORDERED: MORPHINE SULFATE 10 MG/ML INJ IV PRN (13:49)
[2019-08-28] MEDS ORDERED: LORAZEPAM 0.5 MG TABLET PO PRN (13:50)
[2019-08-28] MEDS: SUCRALFATE 1 GM TABLET PO SCH (15:34)
[2019-08-28] MEDS: ATORVASTATIN CALCIUM 80 MG TABLET PO SCH (22:30)
[2019-08-28] MEDS: FAMOTIDINE 20 MG TABLET PO SCH (22:30)
[2019-08-29] MEDS ORDERED: LEVOTHYROXINE SODIUM 0.088 MG TABLET PO SCH (06:00)
[2019-08-29] MEDS: SUCRALFATE 1 GM TABLET PO SCH ×2 (08:26→16:08)
[2019-08-29] MEDS ORDERED: REGADENOSON INJ 0.4 MG/5 ML DISP.SYRIN IV ONE (10:29)
[2019-08-29] MEDS: FAMOTIDINE 20 MG TABLET PO SCH (11:54)
[2019-08-29] MEDS ORDERED: INFLUENZA QUAD (6MOS+) 2019-20 VAC 0.5 ML SYR IM ONE ×2 (16:11→16:25)
[2019-08-29 17:06] VITALS: BP 127/71
--- NOTE | 2019-08-31 23:40 | DRAGON STRESS TEST REPORT ---
Intravenous Lexiscan Cardiolite stress test using single photon emmision computerized tomography. Date of procedure: 08/29/2019. Ordering Provider: Dr. David Barragan. Patient's status: Inpatient. Indication: Chest pain. Coronary risk factors: Age, hypertension, dyslipidemia, and tobacco abuse disorder. Resting EKG: Sinus Rhythm. Within normal limits. Stress EKG: No changes of ischemia. The patient had no chest pain or discomfort, and there were no arrhythmias seen. Reason for termination: Protocol. Conclusions: Normal EKG and hemodynamic response to IV Lexiscan. Nuclear data: At rest the patient was given 10.88 millicuries of technetium 99m sestamibi injected intravenously. As per protocol rest non gated SPECT images were obtained. Subsequently the patient was given intravenous Lexiscan at a dose of 0.4 mg in 5 mL intravenously, followed by flush with normal saline. Subsequently the stress dose of 32.0 millicuries of technetium 99m sestamibi was injected intravenously. As per protocol stress gated images were obtained. Nuclear interpretation: Review of images showed that all segments of the myocardium had normal perfusion at rest, and normal perfusion post stress with IV Lexiscan. All segments of the myocardium had normal motion, contraction, and thickening by gated study. T. I D. ratio was normal at 0.99. There is no transient ischemic dilatation of the left ventricle. Computer read rest, and stress left ventricular ejection fraction were 60 %, and 54 %, respectively. Visually both the stress and rest ejection fractions were normal, and greater than 60 %. Conclusion: 1. There is no scintigraphic evidence of Lexiscan induced myocardial ischemia. 2. There is no scintigraphic evidence of myocardial infarction/scar. Recommendations: Aggressive risk factor modification, and treating the underlying co- morbidities. [facility]
--- NOTE | 2019-09-01 15:42 | PDOC DISCHARGE SUMMARY ---
Impression - Admit/DC Date/PCP Admission Date/Primary Care Provider: 08/27/19 21:39 Discharge Date: 08/29/19 - Discharge Diagnosis (1) Atypical chest pain Is this a current diagnosis for this admission?: Yes (2) Chronic pain Is this a current diagnosis for this admission?: Yes (3) Constipation Is this a current diagnosis for this admission?: Yes (4) Hypertension Is this a current diagnosis for this admission?: Yes (5) Tobacco abuse Is this a current diagnosis for this admission?: Yes (6) Anxiety Is this a current diagnosis for this admission?: Yes - Additional Information Resuscitation Status: Full Code Discharge Diet: Cardiac Discharge Activity: Activity As Tolerated, Balance Activity w/Rest Referrals: BETTY CANDELARIO MD [ACTIVE STAFF] - 09/01/19 11:15 am Home Medications: Aspirin [Ecotrin 81 mg EC Tablet] 81 mg PO DAILY 08/28/19 Buprenorphine 1 each TD .WEEKLY 08/28/19 Ibuprofen [Motrin 400 mg Tablet] 400 mg PO BID 08/28/19 Levothyroxine Sodium [Synthroid 0.088 mg Tablet] 88 mcg PO Q6AM 08/28/19 Rosuvastatin Calcium [Crestor] 20 mg PO DAILY 08/28/19 Sucralfate [Carafate 1 gm Tablet] 1 gm PO BIDACBS 08/28/19 Telmisartan/Hydrochlorothiazid [Telmisartan-Hctz 40-12.5 mg Tb] 1 each PO DAILY 08/28/19 History of Present Illiness History of Present Illness: BRODY LONDONO is a 73 year old female with a past medical history of hypertension, tobacco dependence, fibromyalgia, chronic pain depression, anxiety and panic attacks. She presents with several minutes of chest pain while sitting described as pressure 5 out of 5 intensity which was nonradiating and not associated with palpitations, shortness of breath, nausea or vomiting. In the emergency department she has an unremarkable work-up and is referred to the hospitalist for admission denying recent previous stress test. She is unable to identify alleviating or exacerbating factors. She denies current pain until lately touched upon the chest wall which reproduces intractable pain. Denies recent change in medication regiment she is otherwise been stressed out. Hospital Course Hospital Course: (1) Atypical chest pain Resolved. Noncardiac. Likely due to underlying anxiety. Presented with atypical chest pain in the setting of multiple risk factors for coronary artery disease TSH WNL. Lipid panel WNL. Troponins negative x3. Admitted to treatment continued on beta-blockers, statins, ARB, antiplatelets and PRN morphine and sublingual nitroglycerin. Nuclear stress test was reported as negative. Patient DC'd to follow-up with PCP and cardiology. (2) Chronic pain Follow-up outpatient medication reconciliation, bowel regiment (3) Constipation Lactulose and Fleet enema as needed (4) Hypertension Follow-up medication reconciliation, hydralazine as needed (5) Tobacco abuse Tobacco cessation counseling performed, nicotine replacement options discussed. (6) Anxiety Resume home meds. Advised to follow-up outpatient medication reconciliation Physical Exam Vital Signs: Temp Pulse Resp BP Pulse Ox 97.9 F 54 L 18 127/71 H 97 08/29/19 16:54 08/29/19 16:54 08/29/19 16:54 08/28/19 16:00 08/29/19 16:54 Results Laboratory Results: WBC 6.8 10^3/uL (4.0-10.5) 08/27/19 19:05 RBC 3.86 10^6/uL (3.72-5.28) 08/27/19 19:05 Hgb 12.8 g/dL (12.0-15.5) 08/27/19 19:05 Hct 37.7 % (36.0-47.0) 08/27/19 19:05 MCV 98 fl (80-97) H 08/27/19 19:05 MCH 33.1 pg (27.0-33.4) 08/27/19 19:05 MCHC 33.9 g/dL (32.0-36.0) 08/27/19 19:05 RDW 13.3 % (11.5-14.0) 08/27/19 19:05 Plt Count 225 10^3/uL (150-450) 08/27/19 19:05 Lymph % (Auto) 33.2 % (13-45) 08/27/19 19:05 [place] % (Auto) 5.9 % (3-13) 08/27/19 19:05 Eos % (Auto) 2.3 % (0-6) 08/27/19 19:05 Baso % (Auto) 0.6 % (0-2) 08/27/19 19:05 Absolute Neuts (auto) 3.9 10^3/uL (1.7-8.2) 08/27/19 19:05 Absolute Lymphs (auto) 2.2 10^3/uL (0.5-4.7) 08/27/19 19:05 Absolute Monos (auto) 0.4 10^3/uL (0.1-1.4) 08/27/19 19:05 Absolute Eos (auto) 0.2 10^3/uL (0.0-0.6) 08/27/19 19:05 Absolute Basos (auto) 0.0 10^3/uL (0.0-0.2) 08/27/19 19:05 Seg Neutrophils % 58.0 % (42-78) 08/27/19 19:05 Sodium 142.7 mmol/L (137-145) 08/27/19 19:05 Potassium 4.7 mmol/L (3.6-5.0) 08/27/19 19:05 Chloride 107 mmol/L (98-107) 08/27/19 19:05 Carbon Dioxide 30 mmol/L (22-30) 08/27/19 19:05 Anion Gap 6 (5-19) 08/27/19 19:05 BUN 12 mg/dL (7-20) 08/27/19 19:05 Creatinine 0.67 mg/dL (0.52-1.25) 08/27/19 19:05 Est GFR ( Amer) > 60 (>60) 08/27/19 19:05 Est GFR (MDRD) Non-Af > 60 (>60) 08/27/19 19:05 Glucose 93 mg/dL (75-110) 08/27/19 19:05 Calcium 8.9 mg/dL (8.4-10.2) 08/27/19 19:05 Total Bilirubin 0.3 mg/dL (0.2-1.3) 08/27/19 19:05 Direct Bilirubin 0.3 mg/dL (0.0-0.4) 08/27/19 19:05 Neonat Total Bilirubin Not Reportable 08/27/19 19:05 Neonat Direct Bilirubin Not Reportable 08/27/19 19:05 Neonat Indirect Bili Not Reportable 08/27/19 19:05 AST 22 U/L (14-36) 08/27/19 19:05 ALT 15 U/L (<35) 08/27/19 19:05 Alkaline Phosphatase 76 U/L (38-126) 08/27/19 19:05 Creatine Kinase < 20 U/L (30-135) L 08/27/19 19:05 CK-MB (CK-2) 0.45 ng/mL (<4.55) 08/27/19 19:05 Troponin I < 0.012 ng/mL 08/28/19 09:23 Total Protein 6.2 g/dL (6.3-8.2) L 08/27/19 19:05 Albumin 3.6 g/dL (3.5-5.0) 08/27/19 19:05 TSH 0.49 uIU/mL (0.47-4.68) 08/27/19 19:05 08/27/19 08/27/19 08/28/19 19:05 21:48 03:09 CK-MB (CK-2) 0.45 Troponin I < 0.012 < 0.012 < 0.012 08/28/19 09:23 CK-MB (CK-2) Troponin I < 0.012 Impressions: Chest X-Ray 08/27/19 17:44 IMPRESSION: NO ACUTE RADIOGRAPHIC FINDING IN THE CHEST. Stroke Is this a Stroke Patient?: No Acute Heart Failure - Is this a Heart Failure Patient?: No
== END 2019-08-29 17:46 | disposition home or self-care (01) ==
LOC: ER 17:25 → EH 21:39 → 5 23:30
PROVIDERS: ADMIT Internal Medicine; ATTEND Internal Medicine
DX: R07.89 Other chest pain (principal); G89.29 Other chronic pain; K59.00 Constipation, unspecified; I10 Essential (primary) hypertension; F41.1 Generalized anxiety disorder; F17.210 Nicotine dependence, cigarettes, uncomplicated; M19.90 Unspecified osteoarthritis, unspecified site; E78.5 Hyperlipidemia, unspecified; M79.7 Fibromyalgia; G24.01 Drug induced subacute dyskinesia; I25.2 Old myocardial infarction; Z79.899 Other long term (current) drug therapy; Z79.82 Long term (current) use of aspirin; Z23 Encounter for immunization; Z90.49 Acquired absence of other specified parts of digestive tract; Z82.49 Family history of ischemic heart disease and other diseases of the circulatory system; Z98.84 Bariatric surgery status
CPT/HCPCS: 93005; 99285; 36415 ×2; 82553; 82550; 84443; 85025; 80053; 84484 ×2; 93017; 71045; 78452; 90686; 93010; G0378 ×3; A9500; J2785; A9270 ×7; J3490 ×3; Q9969